=== PATIENT | male | born 1975 | race Caucasian/White ===

== ENCOUNTER 2022-02-13 19:34 | Emergency (ER) | payer BC, OTHER ==
[~2022-02-13] VITALS: Ht 175.3 cm; Wt 74.8 kg
[2022-02-13 20:32] LABS: BASOPHILS ABSOLUTE AUTO 0.08 K/mm3 (0.00-0.23); BASOPHILS PERCENT AUTO 1 % (0-2); EOSINOPHILS ABSOLUTE AUTO 0.62 K/mm3 (0.00-0.68); EOSINOPHILS PERCENT AUTO 8 % (0-6); Hemoglobin 8.1 g/dL (13.5-17.5); IMMATURE GRAN ABSOLUTE AUTO 0.11 K/mm3 (0.00-0.10); IMMATURE GRAN PERCENT AUTO 1 % (0-1); LYMPHOCYTES ABSOLUTE AUTO 2.35 K/mm3 (0.84-5.20); LYMPHOCYTES PERCENT AUTO 29 % (21-46); MONOCYTES ABSOLUTE AUTO 0.89 K/mm3 (0.16-1.47); MONOCYTES PERCENT AUTO 11 % (4-13); Mean Corpuscular HGB 29.8 pg (26.0-34.0); Mean Corpuscular HGB Conc 33.8 g/dL (31.5-36.5); Mean Corpuscular Volume 88 fL (80-100); Mean Platelet Volume 9.3 fL (9.1-12.4); NEUTROPHILS PERCENT AUTO 51 % (41-73); Platelet Count 246 K/mm3 (150-400); RDW Coefficient Variation 14.7 % (11.7-14.2); RDW Standard Deviation 47.4 fL (35.1-46.3); Red Blood Cell Count 2.72 M/mm3 (4.30-5.90); White Blood Cell Count 8.25 K/mm3 (4.00-11.30)
[2022-02-13 20:44] LABS: Albumin, Blood 3.7 g/dL (3.4-5.0); Albumin/Globulin Ratio 0.9 (0.8-1.8); Bilirubin, Total 0.4 mg/dL (0.1-1.0); Bun/Creatinine Ratio 2.9 (12.0-20.0); Creatinine, Blood 5.87 mg/dL (0.60-1.20); Globulin, Blood 4.1 g/dL (2.2-4.0); Potassium, Blood 5.1 mmol/L (3.5-5.5); Total Protein, Blood 7.8 g/dL (6.4-8.2)
== END 2022-02-13 20:59 | disposition home or self-care (01) ==
LOC: ER 19:34
PROVIDERS: Emergency Medicine
DX: T40.2X1A Poisoning by other opioids, accidental (unintentional), initial encounter (principal); C90.00 Multiple myeloma not having achieved remission; N18.6 End stage renal disease; G89.29 Other chronic pain; Z87.891 Personal history of nicotine dependence; Z99.2 Dependence on renal dialysis
CPT/HCPCS: 80053; 85025; 93005; 93010; 99284-25

== ENCOUNTER 2022-03-16 07:53 | Emergency (ER) | payer BC, OTHER ==
[~2022-03-16] VITALS: Ht 175.3 cm; Wt 72.6 kg
[2022-03-16] MEDS ORDERED: DECADRON4 M1 PO (08:28)
[2022-03-16] MEDS ORDERED: PANT40 PO (08:29)
[2022-03-16] MEDS ORDERED: PROC5 PO (08:29)
[2022-03-16] MEDS ORDERED: PARO10 PO (08:29)
[2022-03-16] MEDS ORDERED: MAGNESIUM OXID500 MG PO (08:30)
[2022-03-16] MEDS ORDERED: OXYC10TA19 PO (08:30)
[2022-03-16] MEDS ORDERED: OXYC10ER PO (08:30)
[2022-03-16] MEDS ORDERED: ACYC200 PO (08:31)
[2022-03-16] MEDS ORDERED: MORP15ER PO (11:14)
== END 2022-03-16 11:30 | disposition home or self-care (01) ==
LOC: ER 07:53
DX: C90.00 Multiple myeloma not having achieved remission (principal); R52 Pain, unspecified; M79.18 Myalgia, other site; N17.9 Acute kidney failure, unspecified; Z87.891 Personal history of nicotine dependence; Z79.899 Other long term (current) drug therapy; Z79.2 Long term (current) use of antibiotics; Z88.8 Allergy status to other drugs, medicaments and biological substances
CPT/HCPCS: J1170; J2405

== ENCOUNTER → 2022-04-25 | Outpatient (CLI) | payer BC, OTHER ==
[~2022-04-25] MED LIST: ACYC200 PO; DARZALEX; DECADRON4 M1 PO; MAGNESIUM OXID500 MG PO; MORP15ER PO; OXYC10ER PO; OXYC10TA19 PO; PANT40 PO; PARO10 PO; PROC5 PO
[2022-04-25 13:14] LABS: BASOPHILS ABSOLUTE AUTO 0.04 K/mm3 (0.00-0.23); BASOPHILS PERCENT AUTO 1 % (0-2); EOSINOPHILS ABSOLUTE AUTO 0.18 K/mm3 (0.00-0.68); EOSINOPHILS PERCENT AUTO 5 % (0-6); Hematocrit 24.2 % (37.0-53.0); Hemoglobin 8.1 g/dL (13.5-17.5); IMMATURE GRAN ABSOLUTE AUTO 0.03 K/mm3 (0.00-0.10); IMMATURE GRAN PERCENT AUTO 1 % (0-1); LYMPHOCYTES ABSOLUTE AUTO 0.38 K/mm3 (0.84-5.20); LYMPHOCYTES PERCENT AUTO 10 % (21-46); MONOCYTES ABSOLUTE AUTO 0.19 K/mm3 (0.16-1.47); MONOCYTES PERCENT AUTO 5 % (4-13); Mean Corpuscular HGB 30.8 pg (26.0-34.0); Mean Corpuscular HGB Conc 33.5 g/dL (31.5-36.5); Mean Corpuscular Volume 92 fL (80-100); Mean Platelet Volume 8.9 fL (9.1-12.4); NEUTROPHILS ABSOLUTE AUTO 3.03 K/mm3 (1.96-9.15); NEUTROPHILS PERCENT AUTO 79 % (41-73); Platelet Count 204 K/mm3 (150-400); RDW Coefficient Variation 15.3 % (11.7-14.2); RDW Standard Deviation 49.7 fL (35.1-46.3); Red Blood Cell Count 2.63 M/mm3 (4.30-5.90); White Blood Cell Count 3.85 K/mm3 (4.00-11.30)
[2022-04-25 14:27] LABS: Albumin, Blood 3.5 g/dL (3.4-5.0); Albumin/Globulin Ratio 1.1 (0.8-1.8); Bilirubin, Total 0.5 mg/dL (0.1-1.0); Bun/Creatinine Ratio 2.1 (12.0-20.0); Calcium, Blood 9.4 mg/dL (8.5-10.1); Creatinine, Blood 6.56 mg/dL (0.60-1.20); Globulin, Blood 3.1 g/dL (2.2-4.0); Potassium, Blood 4.5 mmol/L (3.5-5.5); Total Protein, Blood 6.6 g/dL (6.4-8.2)
[2022-04-28 10:07] LABS: BETA-2 MICROGLOBULIN, SERUM 23.4 mg/L (0.6-2.4)
[2022-04-29 15:08] LABS: A/G RATIO 1.7 (0.7-1.7); ALBUMIN 3.9 g/dL (2.9-4.4); ALPHA-1-GLOBULIN 0.2 g/dL (0.0-0.4); ALPHA-2-GLOBULIN 0.4 g/dL (0.4-1.0); BETA GLOBULIN 0.7 g/dL (0.7-1.3); GAMMA GLOBULIN 1.1 g/dL (0.4-1.8); GLOBULIN, TOTAL 2.4 g/dL (2.2-3.9); IMMUNOGLOBULIN A, QN, SERUM <5 mg/dL (90-386); IMMUNOGLOBULIN G, QN, SERUM 364 mg/dL (603-1613); IMMUNOGLOBULIN M, QN, SERUM 11 mg/dL (20-172); M-SPIKE Comment: g/dL (Not Observed); PROTEIN, TOTAL, SERUM 6.3 g/dL (6.0-8.5)
== END | disposition home or self-care (01) ==
LOC: LAB SHORT 11:20 → LAB 11:20
PROVIDERS: Internal Medicine Hematology & Oncology
DX: C90.00 Multiple myeloma not having achieved remission (principal)
CPT/HCPCS: 80053; 82232; 82784; 84165; 85025; 86334

== ENCOUNTER 2022-06-07 16:09 | Emergency (ER) | payer BC, OTHER ==
[~2022-06-07] VITALS: Ht 170.2 cm; Wt 56.7 kg
[2022-06-07 17:25] LABS: BASOPHILS ABSOLUTE AUTO 0.02 K/mm3 (0.00-0.23); BASOPHILS PERCENT AUTO 0 % (0-2); EOSINOPHILS ABSOLUTE AUTO 0.28 K/mm3 (0.00-0.68); EOSINOPHILS PERCENT AUTO 4 % (0-6); Hematocrit 23.8 % (37.0-53.0); Hemoglobin 8.4 g/dL (13.5-17.5); IMMATURE GRAN ABSOLUTE AUTO 0.05 K/mm3 (0.00-0.10); IMMATURE GRAN PERCENT AUTO 1 % (0-1); LYMPHOCYTES ABSOLUTE AUTO 0.18 K/mm3 (0.84-5.20); LYMPHOCYTES PERCENT AUTO 3 % (21-46); MONOCYTES ABSOLUTE AUTO 0.47 K/mm3 (0.16-1.47); MONOCYTES PERCENT AUTO 7 % (4-13); Mean Corpuscular HGB 33.5 pg (26.0-34.0); Mean Corpuscular HGB Conc 35.3 g/dL (31.5-36.5); Mean Corpuscular Volume 95 fL (80-100); NEUTROPHILS ABSOLUTE AUTO 5.45 K/mm3 (1.96-9.15); NEUTROPHILS PERCENT AUTO 85 % (41-73); Platelet Count 197 K/mm3 (150-400); RDW Coefficient Variation 15.7 % (11.7-14.2); RDW Standard Deviation 54.8 fL (35.1-46.3); Red Blood Cell Count 2.51 M/mm3 (4.30-5.90); White Blood Cell Count 6.45 K/mm3 (4.00-11.30)
[2022-06-07 17:58] LABS: Albumin, Blood 3.6 g/dL (3.4-5.0); Albumin/Globulin Ratio 0.9 (0.8-1.8); Bilirubin, Total 0.5 mg/dL (0.1-1.0); Bun/Creatinine Ratio 4.7 (12.0-20.0); Calcium, Blood 9.2 mg/dL (8.5-10.1); Creatinine, Blood 10.9 mg/dL (0.60-1.20); Globulin, Blood 3.8 g/dL (2.2-4.0); Potassium, Blood 4.1 mmol/L (3.5-5.5); Total Protein, Blood 7.4 g/dL (6.4-8.2)
[2022-06-07] MEDS ORDERED: Morphine Sulfat15 MG PO (22:19)
== END 2022-06-07 22:28 | disposition home or self-care (01) ==
LOC: ER 16:09
PROVIDERS: Physician Assistant
DX: S32.9XXA Fracture of unspecified parts of lumbosacral spine and pelvis, initial encounter for closed fracture (principal); Z87.891 Personal history of nicotine dependence; Z79.899 Other long term (current) drug therapy; Z91.048 Other nonmedicinal substance allergy status; W19.XXXA Unspecified fall, initial encounter
CPT/HCPCS: 36415; 72131; 80053; 85025; A9270; J1170

== ENCOUNTER 2022-06-09 14:55 | Observation (INO) | payer BC, OTHER ==
[~2022-06-09] VITALS: Ht 177.8 cm; Wt 68.0 kg
[~2022-06-09 14:55] MED LIST changes: +Morphine Sulfat15 MG PO
[2022-06-09 15:40] LABS: BASOPHILS ABSOLUTE AUTO 0.02 K/mm3 (0.00-0.23); BASOPHILS PERCENT AUTO 1 % (0-2); EOSINOPHILS ABSOLUTE AUTO 0.21 K/mm3 (0.00-0.68); EOSINOPHILS PERCENT AUTO 5 % (0-6); Hematocrit 21.8 % (37.0-53.0); Hemoglobin 7.6 g/dL (13.5-17.5); IMMATURE GRAN ABSOLUTE AUTO 0.03 K/mm3 (0.00-0.10); IMMATURE GRAN PERCENT AUTO 1 % (0-1); LYMPHOCYTES ABSOLUTE AUTO 0.34 K/mm3 (0.84-5.20); LYMPHOCYTES PERCENT AUTO 8 % (21-46); MONOCYTES ABSOLUTE AUTO 0.39 K/mm3 (0.16-1.47); MONOCYTES PERCENT AUTO 9 % (4-13); Mean Corpuscular HGB 33.5 pg (26.0-34.0); Mean Corpuscular HGB Conc 34.9 g/dL (31.5-36.5); Mean Corpuscular Volume 96 fL (80-100); Mean Platelet Volume 9.3 fL (9.1-12.4); NEUTROPHILS ABSOLUTE AUTO 3.21 K/mm3 (1.96-9.15); NEUTROPHILS PERCENT AUTO 76 % (41-73); Platelet Count 176 K/mm3 (150-400); RDW Coefficient Variation 15.5 % (11.7-14.2); Red Blood Cell Count 2.27 M/mm3 (4.30-5.90)
[2022-06-09 16:08] LABS: Magnesium, Blood 2.1 mg/dL (1.6-2.4)
[2022-06-09 16:17] LABS: Albumin, Blood 3.3 g/dL (3.4-5.0); Albumin/Globulin Ratio 0.9 (0.8-1.8); Bilirubin, Total 0.3 mg/dL (0.1-1.0); Bun/Creatinine Ratio 5.5 (12.0-20.0); Calcium, Blood 9.1 mg/dL (8.5-10.1); Creatinine, Blood 11.7 mg/dL (0.60-1.20); Globulin, Blood 3.8 g/dL (2.2-4.0); Potassium, Blood 4.2 mmol/L (3.5-5.5); Total Protein, Blood 7.1 g/dL (6.4-8.2)
[2022-06-10 07:55] LABS: Hematocrit 20.3 % (37.0-53.0); Hemoglobin 7.1 g/dL (13.5-17.5); Mean Corpuscular HGB 33.6 pg (26.0-34.0); Mean Corpuscular Volume 96 fL (80-100); Mean Platelet Volume 9.3 fL (9.1-12.4); Platelet Count 161 K/mm3 (150-400); RDW Coefficient Variation 15.6 % (11.7-14.2); RDW Standard Deviation 54.8 fL (35.1-46.3); Red Blood Cell Count 2.11 M/mm3 (4.30-5.90); White Blood Cell Count 3.76 K/mm3 (4.00-11.30)
[2022-06-10 08:10] LABS: Magnesium, Blood 2.2 mg/dL (1.6-2.4)
[2022-06-10 08:15] LABS: Bun/Creatinine Ratio 5.9 (12.0-20.0); Calcium, Blood 9.1 mg/dL (8.5-10.1)
--- NOTE | 2022-06-10 12:43 | NUR ---
06/10/22 1243 Noreen Fofana 2G ANCEF GIVEN BY ANESTHESIOLOGIST FROM [facility] AT 1206
[2022-06-10] MEDS ORDERED: Prozac20 MG PO (15:14)
[2022-06-10] MEDS ORDERED: Zofran8 MG PO (15:16)
== END 2022-06-10 10:33 | disposition home or self-care (01) ==
LOC: ER 14:55 → ERHOLD 14:56
PROVIDERS: Nurse Practitioner Acute Care; Physician Assistant; ADMIT Internal Medicine
DX: Z49.01 Encounter for fitting and adjustment of extracorporeal dialysis catheter (principal); N18.6 End stage renal disease; Z87.891 Personal history of nicotine dependence; K21.9 Gastro-esophageal reflux disease without esophagitis; N25.81 Secondary hyperparathyroidism of renal origin; E86.9 Volume depletion, unspecified; E87.1 Hypo-osmolality and hyponatremia; D63.1 Anemia in chronic kidney disease; C90.00 Multiple myeloma not having achieved remission
CPT/HCPCS: 36415; 71046; 77001; 80048; 80053; 83735; 85025; 85027; 96374; 96375; 96376; 99285-25; A9270; C1750; G0257; G0378; J0690; J0881; J1100; J1170; J1644; J2250; J2405; J2704; J2795; J3010; J7030

== ENCOUNTER 2022-11-12 11:09 | Day surgery (SDC) | payer BC, OTHER ==
[2022-11-12] VITALS (12 sets, daily range): BP systolic 100–146; BP diastolic 53–74
[~2022-11-12] VITALS: Ht 175.3 cm; Wt 74.1 kg
[~2022-11-12 11:09] MED LIST changes: +CYCLOPHOSPHAMID50 MG PO; +POMALYST2 MG PO; +Prozac20 MG PO; +Revlimid5 MG PO; +Zofran8 MG PO
[2022-11-12] MEDS ORDERED: OMEP20ER PO (11:54)
--- NOTE | 2022-11-12 15:03 | NUR ---
PT VERBALLY CONSENTED TO BLOOD DRAW ONCE AWAKE IN PACU. WITNESSED BY THIS STUDENT NURSE AND PRECEPTOR FALGUNI ALEMAN RN. NEEDLE STICK INJURY BY OR-STAFF. KETTLE CHIPPER DOWN TO DRAW BLOOD AT 1458. PT COOPERATIVE AND APPEARS TO HAVE TOLERATED THE PROCEDURE WELL.
--- NOTE | 2022-11-12 16:47 | NUR ---
DISCHARGE NOTE Discharge instructions reviewed with patient. Patient verbalizes understanding. Copy given to patient to take home.Lungs clear T/O to Auscultation.PT instructed not to disturb dressing, will be changed at dialysis appt tomorrow. Discharged via wheelchair to private car for ride home.
--- NOTE | 2022-11-12 17:00 | NUR ---
PT COMPLAINING OF NAUSEA WHILE BEING WHEELED OUT FOR DISCHARGE. BROUGHT PT BACK TO [facility], PT AMBULATED TO [facility] AND LAID DOWN. ORDER FOR HAIDER OLIVEIRA RECIEVED FROM DR. IVORY. TOOK VITAL SIGNS, BLOOD PRESSURE STABLE.
--- NOTE | 2022-11-12 17:04 | NUR ---
PHARMACY CALLED FOR CONFIRMATION OF ORDER. PT RESTING IN BED WITH EYES CLOSED. WET WASHCLOTH APPLIED TO FOREHEAD, ALCHOL SWAB UNDER NARES, NAUSEA SLIGHTLY IMPROVED. WAITING FOR PHARMACY TO TUBE ZOFRAN.
--- NOTE | 2022-11-12 17:20 | NUR ---
PT STATES THAT NAUSEA HAS IMPROVED. VITAL SIGNS STABLE. Discharged via wheelchair to private car for ride home.
--- NOTE | 2022-11-13 09:05 | NUR ---
11/13/22 0905 Jeannette Lima VERIFICATIONS: EDIT CHART.
[2022-11-13] MEDS ORDERED: Calcium Carbon500 MG PO (10:20)
[2022-11-13] MEDS ORDERED: Acetaminophen650 M1 PO (10:21)
[2022-11-13] MEDS ORDERED: DOCU100 PO (10:22)
== END 2022-11-12 17:25 | disposition home or self-care (01) ==
LOC: ORSCMMR 11:09 → ORD 15:00 → ORSCMMR 15:00
PROVIDERS: Surgery
PROC: B544ZZA Ultrasonography of Left Jugular Veins, Guidance (ICD-10-PCS; principal; 2022-11-12 12:00)
PROC: 05HN33Z Insertion of Infusion Device into Left Internal Jugular Vein, Percutaneous Approach (ICD-10-PCS; principal; 2022-11-12 12:00)
DX: C90.00 Multiple myeloma not having achieved remission (principal); N18.6 End stage renal disease; K21.9 Gastro-esophageal reflux disease without esophagitis; Z87.891 Personal history of nicotine dependence; Z79.899 Other long term (current) drug therapy
CPT/HCPCS: 77001; 93005; 93010; A9270; C1750; C1894; J0690; J1100; J1644; J2001; J2250; J2370; J2405; J2704; J2795; J3010; J7030

== ENCOUNTER 2022-11-12 20:33 | Inpatient (IN) | payer BC, OTHER ==
[~2022-11-12] VITALS: Ht 175.3 cm; Wt 72.6 kg
[~2022-11-12 20:33] MED LIST changes: +OMEP20ER PO
[2022-11-12 21:35] LABS: Calcium, Ionized (POC) 0.79 mmol/L (1.10-1.46); Chloride (POC) 104 mmol/L (98-108); Creatinine (POC) 11.1 mg/dL (0.8-1.3); Glucose (ISTAT POC) 209 mg/dL (70-99); Hemoglobin (POC) 7.5 g/dL (13.5-17.5); Potassium (POC) 6.3 mmol/L (3.5-5.5); Sodium (POC) 133 mmol/L (135-148); Total CO2 (POC) 18 mmol/L (21-32)
[2022-11-12 21:36] LABS: BASOPHILS ABSOLUTE AUTO 0.02 K/mm3 (0.00-0.23); BASOPHILS PERCENT AUTO 1 % (0-2); EOSINOPHILS ABSOLUTE AUTO 0.02 K/mm3 (0.00-0.68); EOSINOPHILS PERCENT AUTO 1 % (0-6); Hematocrit 20.7 % (37.0-53.0); Hemoglobin 6.7 g/dL (13.5-17.5); IMMATURE GRAN ABSOLUTE AUTO 0.02 K/mm3 (0.00-0.10); IMMATURE GRAN PERCENT AUTO 1 % (0-1); LYMPHOCYTES ABSOLUTE AUTO 0.17 K/mm3 (0.84-5.20); LYMPHOCYTES PERCENT AUTO 6 % (21-46); MONOCYTES ABSOLUTE AUTO 0.08 K/mm3 (0.16-1.47); MONOCYTES PERCENT AUTO 3 % (4-13); Mean Corpuscular HGB 31.3 pg (26.0-34.0); Mean Corpuscular HGB Conc 32.4 g/dL (31.5-36.5); Mean Corpuscular Volume 97 fL (80-100); Mean Platelet Volume 9.4 fL (9.1-12.4); NEUTROPHILS ABSOLUTE AUTO 2.76 K/mm3 (1.96-9.15); NEUTROPHILS PERCENT AUTO 90 % (41-73); Platelet Count 83 K/mm3 (150-400); RDW Coefficient Variation 14.5 % (11.7-14.2); RDW Standard Deviation 50.6 fL (35.1-46.3); Red Blood Cell Count 2.14 M/mm3 (4.30-5.90); White Blood Cell Count 3.07 K/mm3 (4.00-11.30)
[2022-11-12 22:06] LABS: Magnesium, Blood 2.6 mg/dL (1.6-2.4); Phosphorus, Blood 4.7 mg/dL (2.5-4.9)
[2022-11-12 22:13] LABS: International Normalized Ratio 1.02; Prothrombin Time Results 10.7 Sec (9.7-11.5)
[2022-11-12 22:19] LABS: Albumin, Blood 3.3 g/dL (3.4-5.0); Albumin/Globulin Ratio 1.1 (0.8-1.8); Bilirubin, Total 0.3 mg/dL (0.1-1.0); Bun/Creatinine Ratio 5.7 (12.0-20.0); Calcium, Blood 6.2 mg/dL (8.5-10.1); Creatinine, Blood 10.3 mg/dL (0.60-1.20); Total Protein, Blood 6.3 g/dL (6.4-8.2)
[2022-11-12 22:22] LABS: Potassium, Blood 6.5 mmol/L (3.5-5.5)
[2022-11-13] VITALS (17 sets, daily range): BP systolic 109–144; BP diastolic 66–81
--- NOTE | 2022-11-13 06:42 | NUR ---
SHIFT SUMMARY PATIENT ARRIVED TO PCU 3 VIA STRETCHER, SLIDE TRANSFER DUE TO WEAKNES. PATIENT ALERT AND ORIENTED X4, FLAT AFFECT AND WITHDRAWN. LUNG SOUNDS CLEAR, VITAL SIGNS STABLE, SINUS RHYTHM ON TELE. PATIENT WAS EXPERIENCING 9/10 PAIN AT THE SITE OF HIS NEW HD PORT, 2-4 MG IV MORPHINE EVERY FOUR HOURS NEEDED ORDERED BY DR CUELLO. PATIENT TRANSFUSED WITH 1 UNIT OF PRBC'S. PATIENT'S POTASSIUM CHECKED STAT BY REQUEST OF DR HERNANDEZ, RESULT CAME BACK AT 7.[address] HERNANDEZ OF RESULT. DR HERNANDEZ ORDERED 1 G IV CALCIUM GLUCONATE, 1 AMP IV SODIUM BICARB, 10G PO LOKELMA, AND STAT DIALYSIS. AFTER BEING NOTIFIED WITH PATIENT'S BLOOD SUGAR DR HERNANDEZ ORDERED 1 AMP IV D50, 10 UNITS IV REGULAR INSULIN, AND D5 NS @ 50 ML/HR. ALL MEDICATIONS GIVEN PER ORDERED. PATIENT IS WEAK AND TIRED THIS MORNING. BLOOD SUGAR STABLE AFTER D50 AND INSULIN. DIALYSIS AT BEDSIDE. WILL CONTINUE TO MONITOR. CALL LIGHT WITHIN REACH.
[2022-11-13 07:12] LABS: Glucose, Blood 80 mg/dL (70-99); Potassium, Blood 7.5 mmol/L (3.5-5.5)
[2022-11-13 09:23] LABS: BASOPHILS ABSOLUTE AUTO 0.01 K/mm3 (0.00-0.23); BASOPHILS PERCENT AUTO 0 % (0-2); EOSINOPHILS ABSOLUTE AUTO 0.01 K/mm3 (0.00-0.68); EOSINOPHILS PERCENT AUTO 0 % (0-6); Hematocrit 20.3 % (37.0-53.0); IMMATURE GRAN ABSOLUTE AUTO 0.02 K/mm3 (0.00-0.10); IMMATURE GRAN PERCENT AUTO 1 % (0-1); LYMPHOCYTES ABSOLUTE AUTO 0.33 K/mm3 (0.84-5.20); LYMPHOCYTES PERCENT AUTO 11 % (21-46); MONOCYTES ABSOLUTE AUTO 0.46 K/mm3 (0.16-1.47); MONOCYTES PERCENT AUTO 15 % (4-13); Mean Corpuscular HGB 31.3 pg (26.0-34.0); Mean Corpuscular HGB Conc 34.5 g/dL (31.5-36.5); Mean Platelet Volume 9.3 fL (9.1-12.4); NEUTROPHILS PERCENT AUTO 74 % (41-73); Platelet Count 81 K/mm3 (150-400); RDW Coefficient Variation 14.8 % (11.7-14.2); RDW Standard Deviation 48.4 fL (35.1-46.3); Red Blood Cell Count 2.24 M/mm3 (4.30-5.90); White Blood Cell Count 3.13 K/mm3 (4.00-11.30)
[2022-11-13 09:43] LABS: Mean Corpuscular Volume 91 fL (80-100)
[2022-11-13] MEDS ORDERED: Calcium Carbon500 MG PO (10:20)
[2022-11-13] MEDS ORDERED: Acetaminophen650 M1 PO (10:21)
[2022-11-13] MEDS ORDERED: DOCU100 PO (10:22)
[2022-11-13 11:01] LABS: Alanine Aminotransfer (ALT/SGP 7 U/L (12-78); Albumin, Blood 3.2 g/dL (3.4-5.0); Albumin/Globulin Ratio 1.2 (0.8-1.8); Alk Phos 51 U/L (50-136); Anion Gap 11 mmol/L (6-16); Aspartate Aminotrans (AST/SGOT <3 U/L (12-37); Bilirubin, Total 0.5 mg/dL (0.1-1.0); Blood Urea Nitrogen 37 mg/dL (8-24); Bun/Creatinine Ratio 5.9 (12.0-20.0); CO2, Blood 25 mmol/L (21-32); Calcium, Blood 7.1 mg/dL (8.5-10.1); Chloride, Blood 99 mmol/L (98-108); Creatinine, Blood 6.32 mg/dL (0.60-1.20); Globulin, Blood 2.6 g/dL (2.2-4.0); Glomerular Filtration Rate 10 (60-); Glucose, Blood 99 mg/dL (70-99); Potassium, Blood 4.2 mmol/L (3.5-5.5); Sodium, Blood 135 mmol/L (136-145); Total Protein, Blood 5.8 g/dL (6.4-8.2)
--- NOTE | 2022-11-13 18:01 | NUR ---
NURSING PCU DAYSHIFT SUMMARY: No significant changes since a.m. assessment. HD completed, approx 1L removed. Pt cont to have pain r/t recent placement of HD cath, tx w/meds as ordered. General unwell and weakness experienced t/o shift though reports slight improvement compared to admit. Post HD labs completed and reviewed w/director of residence life and PMD, new d/o recieved. Noted to not have voided t/o shift, bladder scan completed with >999 present. Able to void 600mls followed by 425mls since scan completed, denies abd pressure or discomfort since void. Mom at bedside this afternoon, update provided, plan of care discussed. Pt and family deny any current needs or questions regarding plan of care. Call light in reach, cont to monitor until rpt is given to NOC RN.
[2022-11-14] VITALS (21 sets, daily range): BP systolic 112–160; BP diastolic 56–86
[2022-11-14 04:18] LABS: Hematocrit 19.7 % (37.0-53.0); Hemoglobin 6.6 g/dL (13.5-17.5)
[2022-11-14 05:02] LABS: Ferritin, Serum 692 ng/mL (26-388); Iron Serum 40 ug/dL (65-175); Magnesium, Blood 2.2 mg/dL (1.6-2.4); Percent Saturation 19.8 % (20.0-50.0); Total Iron Binding Capacity 202 ug/dL (250-450)
[2022-11-14 05:46] LABS: Albumin, Blood 3.1 g/dL (3.4-5.0); Anion Gap 8 mmol/L (6-16); Blood Urea Nitrogen 45 mg/dL (8-24); Bun/Creatinine Ratio 5.4 (12.0-20.0); CO2, Blood 27 mmol/L (21-32); Calcium, Blood 6.3 mg/dL (8.5-10.1); Chloride, Blood 102 mmol/L (98-108); Creatinine, Blood 8.37 mg/dL (0.60-1.20); Glomerular Filtration Rate 7 (60-); Glucose, Blood 101 mg/dL (70-99); Phosphorus, Blood 4.9 mg/dL (2.5-4.9); Potassium, Blood 5.4 mmol/L (3.5-5.5); Sodium, Blood 137 mmol/L (136-145)
--- NOTE | 2022-11-14 06:48 | NUR ---
SHIFT SUMMARY PATIENT ALERT AND ORIENTED X4. MEDICATED PER EMAR FOR PAIN, REPORTS THAT PAIN IS SLOWLY DECREASING. WAS ABLE TO REST OVERNIGHT. LUNG SOUNDS CLEAR, ON ROOM AIR. VITAL SIGNS STABLE, SINUS RHYTHM ON TELE. PATIENT'S CREATININE 8.37 AND HEMEGLOBIN 6.6 THIS MORNING, REPORTED THESE RESULTS TO DR HERNANDEZ, PATIENT TO RECEIVE 1 UNIT PRBC'S DURING DIALYSIS TODAY. WILL CONTINUE TO MONITOR. CALL LIGHT WITHIN REACH.
--- NOTE | 2022-11-14 16:51 | NUR ---
SHIFT SUMMARY PT IS A&O X4. VSS. SPO2 >92% ON RA. NORMAL SINUS RHYTHM HR 60'S-70'S. PT C/O FREQUENT DISCOMFORT ON THE LEFT SHOULDER AND PLACEMENT OF WHERE DIALYSIS CATH IS. PT MEDICATED FOR PAIN PER ORDERS. PT RECIEVED DIALYSIS TX TODAY. PT C/O FEELING "WEIRD" AFTER DIALYSIS. PT MEDICATED FOR PAIN. PT NOW ABLE TO SLEEP. PT NOW STATING HE IS FEELING BETTER. NO OTHER COMPLAINTS AT THIS TIME. BED IS IN LOWEST POSITION AND CALL LIGHT IN REACH. WILL CONTINUE TO MONITOR.
--- NOTE | 2022-11-14 20:16 | NUR ---
ASSUMPTION OF CARE THIS RN ASSUMED CARE OF PATIENT AT 1900. REPORT TAKEN FROM MAX RN AND REKHA CHRISTY RN. PATIENT IS ALERT AND ORIENTED FULLY. ABLE TO MAKE NEEDS KNOWN. MEDICATED PER EMAR FOR REPORTED PAIN AT HD CATH SITE IN LEFT UPPER CHEST. BP STABLE. AFEBRILE. SPO2 >92% ON RA. SR ON MONITOR WITH HR 70'S. REPORTS GENERALIZED WEAKNESS. BED IN LOWEST POSITION AND CALL LIGHT WITHIN REACH.
[2022-11-15] VITALS (15 sets, daily range): BP systolic 108–146; BP diastolic 54–77
[2022-11-15 04:19] LABS: Hematocrit 22.4 % (37.0-53.0); Hemoglobin 7.6 g/dL (13.5-17.5)
--- NOTE | 2022-11-15 04:30 | NUR ---
SHIFT SUMMARY NO ACUTE CHANGES OVERNIGHT. ALERT AND ORIENTED FULLY AND ABLE TO MAKE NEEDS KNOWN. COOPERATIVE WITH CARE. FLAT AFFECT. BP STABLE. SR ON MONITOR WITH HR 60-70'S. SPO2 >92% ON RA. AFEBRILE. HD CATH IN LEFT CHEST WALL WNL, DRESSING C/D/I. PATIENT DENIES PAIN AT THIS TIME; MEDICATING PER EMAR. PATIENT REPOSITIONING SELF IN BED INDEPENDENTLY. BED IN LOWEST POSITION AND CALL LIGHT WITHIN REACH. THIS RN WILL CONTINUE TO MONITOR UNTIL SHIFT CHANGE AT 0700.
[2022-11-15 04:33] LABS: Anion Gap 9 mmol/L (6-16); Blood Urea Nitrogen 33 mg/dL (8-24); Bun/Creatinine Ratio 4.9 (12.0-20.0); CO2, Blood 30 mmol/L (21-32); Calcium, Blood 6.7 mg/dL (8.5-10.1); Chloride, Blood 99 mmol/L (98-108); Creatinine, Blood 6.78 mg/dL (0.60-1.20); Glomerular Filtration Rate 9 (60-); Glucose, Blood 106 mg/dL (70-99); Magnesium, Blood 2.1 mg/dL (1.6-2.4); Phosphorus, Blood 5.2 mg/dL (2.5-4.9); Sodium, Blood 138 mmol/L (136-145)
[2022-11-15] MEDS ORDERED: LOKELMA10 GM PO (13:49)
[2022-11-15] MEDS ORDERED: VISBIOME 112.51 EACH PO (13:51)
[2022-11-15] MEDS ORDERED: AZIT250 PO (13:52)
[2022-11-15] MEDS ORDERED: CEPH500 PO (13:54)
--- NOTE | 2022-11-15 14:17 | NUR ---
DISCHARGE NOTE PT IS A&O X4. VSS. SPO2 >92% ON RA. NORMAL SINUS RHYTHM HR 60'S. PT RECIEVED DIALYSIS TX TODAY. CXR DONE THIS SHIFT. WITH ORDER FOR DC HOME. DC INSTRUCTIONS REVIEWED WITH PT. IV'S REMOVED. PT TO BE TAKEN OUT IN WHEELCHAIR WITH BELONGINGS.
== END 2022-11-15 14:30 | disposition home or self-care (01) | DRG 640 ==
LOC: ER 20:33 → PCU 20:34
PROVIDERS: Internal Medicine Nephrology; Student in an Organized Health Care Education/Training Program; ADMIT Internal Medicine
PROC: 30233N1 Transfusion of Nonautologous Red Blood Cells into Peripheral Vein, Percutaneous Approach (ICD-10-PCS; principal; 2022-11-13)
PROC: 5A1D70Z Performance of Urinary Filtration, Intermittent, Less than 6 Hours Per Day (ICD-10-PCS; 2022-11-14)
DX: E87.5 Hyperkalemia (principal); N18.6 End stage renal disease; C79.89 Secondary malignant neoplasm of other specified sites; C90.00 Multiple myeloma not having achieved remission; N25.81 Secondary hyperparathyroidism of renal origin; D61.818 Other pancytopenia; J94.2 Hemothorax; J90 Pleural effusion, not elsewhere classified; E87.20 Acidosis, unspecified; E87.1 Hypo-osmolality and hyponatremia; M54.9 Dorsalgia, unspecified; E83.51 Hypocalcemia; D63.1 Anemia in chronic kidney disease; E86.9 Volume depletion, unspecified; K21.9 Gastro-esophageal reflux disease without esophagitis; D63.0 Anemia in neoplastic disease; G89.29 Other chronic pain; E87.6 Hypokalemia; R73.9 Hyperglycemia, unspecified; Z87.891 Personal history of nicotine dependence; Z98.890 Other specified postprocedural states; Z99.2 Dependence on renal dialysis; Z85.118 Personal history of other malignant neoplasm of bronchus and lung; Z79.899 Other long term (current) drug therapy; Z79.891 Long term (current) use of opiate analgesic; Z88.5 Allergy status to narcotic agent; Z79.2 Long term (current) use of antibiotics
CPT/HCPCS: 36415; 36430; 71045; 80047; 80053; 80069; 82607; 82728; 82746; 82947; 83036; 83540; 83550; 83735; 84100; 84132; 84145; 85014; 85018; 85025; 85610; 85730; 86850; 86900; 86901; 86902; 86920; 93005; 93010; 96374; 96375; 99285-25; A9270; G0378; J0456; J0612; J0696; J0881; J1815; J2270; J2405; J7042; J7050; J7799; P9016

== ENCOUNTER → 2023-05-08 | Outpatient (CLI) | payer OTHER ==
[~2023-05-08] MED LIST changes: +AZIT250 PO; +Acetaminophen650 M1 PO; +CEPH500 PO; +Calcium Carbon500 MG PO; +DOCU100 PO; +LOKELMA10 GM PO; +VISBIOME 112.51 EACH PO
[2023-05-08 13:55] LABS: BASOPHILS PERCENT AUTO 3 % (0-2); EOSINOPHILS ABSOLUTE AUTO 0.23 K/mm3 (0.00-0.68); EOSINOPHILS PERCENT AUTO 7 % (0-6); Hemoglobin 9.7 g/dL (13.5-17.5); IMMATURE GRAN ABSOLUTE AUTO 0.07 K/mm3 (0.00-0.10); IMMATURE GRAN PERCENT AUTO 2 % (0-1); LYMPHOCYTES PERCENT AUTO 16 % (21-46); MONOCYTES ABSOLUTE AUTO 0.23 K/mm3 (0.16-1.47); MONOCYTES PERCENT AUTO 7 % (4-13); Mean Corpuscular HGB 31.3 pg (26.0-34.0); Mean Corpuscular HGB Conc 32.3 g/dL (31.5-36.5); Mean Corpuscular Volume 97 fL (80-100); Mean Platelet Volume 9.7 fL (9.1-12.4); NEUTROPHILS ABSOLUTE AUTO 2.09 K/mm3 (1.96-9.15); NEUTROPHILS PERCENT AUTO 65 % (41-73); Platelet Count 186 K/mm3 (150-400); RDW Coefficient Variation 15.5 % (11.7-14.2); RDW Standard Deviation 54.4 fL (35.1-46.3); White Blood Cell Count 3.22 K/mm3 (4.00-11.30)
[2023-05-08 14:02] LABS: Albumin, Blood 3.5 g/dL (3.4-5.0); Albumin/Globulin Ratio 1.2 (0.8-1.8); Bilirubin, Total 0.5 mg/dL (0.1-1.0); Bun/Creatinine Ratio 3.1 (12.0-20.0); Calcium, Blood 8.5 mg/dL (8.5-10.1); Creatinine, Blood 6.83 mg/dL (0.60-1.20); Globulin, Blood 2.8 g/dL (2.2-4.0); Potassium, Blood 4.6 mmol/L (3.5-5.5); Total Protein, Blood 6.3 g/dL (6.4-8.2)
== END ==
LOC: LAB 13:27 → LAB SHORT 13:27
PROVIDERS: Internal Medicine Hematology & Oncology
DX: C90.00 Multiple myeloma not having achieved remission (principal)
CPT/HCPCS: 80053; 83521; 85025

== ENCOUNTER → 2023-08-28 | Outpatient (CLI) | payer BC, OTHER ==
[2023-08-28 13:50] LABS: BASOPHILS ABSOLUTE AUTO 0.16 K/mm3 (0.00-0.23); BASOPHILS PERCENT AUTO 5 % (0-2); EOSINOPHILS PERCENT AUTO 17 % (0-6); Hematocrit 26.1 % (37.0-53.0); Hemoglobin 8.6 g/dL (13.5-17.5); IMMATURE GRAN ABSOLUTE AUTO 0.02 K/mm3 (0.00-0.10); IMMATURE GRAN PERCENT AUTO 1 % (0-1); LYMPHOCYTES ABSOLUTE AUTO 0.53 K/mm3 (0.84-5.20); LYMPHOCYTES PERCENT AUTO 18 % (21-46); MONOCYTES ABSOLUTE AUTO 0.32 K/mm3 (0.16-1.47); MONOCYTES PERCENT AUTO 11 % (4-13); Mean Corpuscular HGB 32.2 pg (26.0-34.0); Mean Corpuscular Volume 98 fL (80-100); Mean Platelet Volume 8.8 fL (9.1-12.4); NEUTROPHILS ABSOLUTE AUTO 1.49 K/mm3 (1.96-9.15); NEUTROPHILS PERCENT AUTO 49 % (41-73); Platelet Count 179 K/mm3 (150-400); RDW Coefficient Variation 14.4 % (11.7-14.2); RDW Standard Deviation 51.1 fL (35.1-46.3); Red Blood Cell Count 2.67 M/mm3 (4.30-5.90); White Blood Cell Count 3.02 K/mm3 (4.00-11.30)
[2023-08-28 14:04] LABS: Albumin, Blood 2.9 g/dL (3.4-5.0); Albumin/Globulin Ratio 0.8 (0.8-1.8); Bilirubin, Total 0.3 mg/dL (0.1-1.0); Bun/Creatinine Ratio 3.6 (12.0-20.0); Calcium, Blood 8.2 mg/dL (8.5-10.1); Creatinine, Blood 5.82 mg/dL (0.60-1.20); Globulin, Blood 3.8 g/dL (2.2-4.0); Potassium, Blood 3.5 mmol/L (3.5-5.5); Total Protein, Blood 6.7 g/dL (6.4-8.2)
== END ==
LOC: LAB SHORT 12:20
PROVIDERS: Internal Medicine Hematology & Oncology
DX: C90.00 Multiple myeloma not having achieved remission (principal)
CPT/HCPCS: 80053; 85025

== ENCOUNTER 2024-05-13 16:52 | Emergency (ER) | payer MEDICARE, OTHER ==
[~2024-05-13] VITALS: Ht 175.3 cm; Wt 74.8 kg
[~2024-05-13 16:52] MED LIST changes: +ALUMINUM H320 MG/5 M PO; +Calcium Acetat667 MG PO; +DECADRON4 M1; +LACT10SY PO; +NARCAN4 M1 NS; +ONDA4 PO; -POMALYST2 MG PO; +POMALYST3 MG PO
[2024-05-13 19:18] LABS: Albumin, Blood 3.7 g/dL (3.4-5.0); Albumin/Globulin Ratio 1.3 (0.8-1.8); Bilirubin, Total 0.6 mg/dL (0.1-1.0); Bun/Creatinine Ratio 1.9 (12.0-20.0); Creatinine, Blood 4.27 mg/dL (0.60-1.20); Globulin, Blood 2.8 g/dL (2.2-4.0); Potassium, Blood 3.7 mmol/L (3.5-5.5); Total Protein, Blood 6.5 g/dL (6.4-8.2)
[2024-05-13 20:26] LABS: Hematocrit 29.5 % (37.0-53.0); Hemoglobin 9.7 g/dL (13.5-17.5); Mean Corpuscular HGB 33.2 pg (26.0-34.0); Mean Corpuscular HGB Conc 32.9 g/dL (31.5-36.5); Mean Corpuscular Volume 101 fL (80-100); Mean Platelet Volume 9.3 fL (9.1-12.4); NRBC ABSOLUTE 0.03 K/mm3 (0.00-0.02); NRBC Auto 0.8 /100 WBC (0.0-0.2); Platelet Count 121 K/mm3 (150-400); RDW Coefficient Variation 14.6 % (11.7-14.2); RDW Standard Deviation 54.7 fL (35.1-46.3); Red Blood Cell Count 2.92 M/mm3 (4.30-5.90); White Blood Cell Count 3.64 K/mm3 (4.00-11.30)
[2024-05-13 20:47] LABS: BAND PERCENT MAN 2 % (0-8); BASOPHILS PERCENT MAN 0 % (0-2); EOSINOPHILS ABSOLUTE MAN 0.32 K/mm3 (0.00-0.68); EOSINOPHILS PERCENT MAN 9 % (0-6); LYMPHOCYTES ABSOLUTE MAN 0.91 K/mm3 (0.84-5.20); LYMPHOCYTES PERCENT MAN 25 % (21-46); MONOCYTES ABSOLUTE MAN 0.32 K/mm3 (0.16-1.47); MONOCYTES PERCENT MAN 9 % (4-13); MYELOCYTE ABSOLUTE MAN 0.03 K/mm3 (0.00-0.00); MYELOCYTE PERCENT MAN 1 % (0-0); NEUTROPHILS ABSOLUTE MAN 2.03 K/mm3 (1.96-9.15); SEG NEUTROPHILS PERCENT MAN 54 % (41-73); TOTAL CELLS COUNTED 100
[2024-05-14] MEDS ORDERED: SALICYLIC ACID TOP ONE (01:45)
[2024-05-14 02:00] VITALS: BP 101/72
[2024-05-14] MEDS ORDERED: Diclofenac Sodium 100 GM TUBE TOP ONE (02:35)
== END 2024-05-14 02:30 | disposition home or self-care (01) ==
LOC: ER 16:52
PROVIDERS: Physician Assistant
DX: I82.611 Acute embolism and thrombosis of superficial veins of right upper extremity (principal); D61.818 Other pancytopenia; N18.6 End stage renal disease; Z99.2 Dependence on renal dialysis; Z87.891 Personal history of nicotine dependence; Z79.899 Other long term (current) drug therapy; Z88.1 Allergy status to other antibiotic agents; Z88.5 Allergy status to narcotic agent; T82.590A Other mechanical complication of surgically created arteriovenous fistula, initial encounter; C90.00 Multiple myeloma not having achieved remission
CPT/HCPCS: 36415; 71046; 71260; 80048; 80053; 82784; 83521; 84155; 84165; 85007; 85025; 85027; 85610; 86334; 93005; 93010; 93971; 99285-25; A9270; Q9967

== ENCOUNTER 2024-05-17 10:15 | Day surgery (SDC) | payer MEDICARE, OTHER ==
[~2024-05-17] VITALS: Ht 175.3 cm; Wt 77.0 kg
[2024-05-17 11:01] VITALS: BP 99/64
[2024-05-17] MEDS ORDERED: NS 250 ML IV ONE (12:31)
[2024-05-17] MEDS ORDERED: Heparin Sodium 1000 Units/ML 10ML MDV ONE (12:31)
[2024-05-17] MEDS ORDERED: NS 500 ML IV ONE (12:32)
[2024-05-17] MEDS ORDERED: FentaNYL Citrate 50 MCG/ML 2 ML Injection ONE (12:35)
[2024-05-17] MEDS ORDERED: HYDROmorphone HCl/Pf 1MG SYR IV ONE (13:15)
[2024-05-17] MEDS ORDERED: HYDROMORPHONE HCL IV ONE (13:15)
[2024-05-17 14:08] VITALS: BP 94/72
--- NOTE | 2024-05-17 14:13 | NUR ---
VERBAL DISCHARGE INSTRUCTIONS GIVEN TO PATIENT AND FAMILY. FISTULA SITE C/D/I SOFT/NONTENDER, THRILL AND BRUIT PRESENT. VSS ON RA. PATIENT CONVERSING APPROPRIATELY.
--- NOTE | 2024-05-17 14:15 | NUR ---
PATIENT WHEELED TO HOSPITAL ENTRANCE AND FAMILY MEMBER ABLE TO PROVIDE TRANSPORTATION HOME.
== END 2024-05-17 14:15 | disposition home or self-care (01) ==
LOC: MHTC 10:15 → ORSCMMR 10:16 → MHTC 10:25
DX: T82.590A Other mechanical complication of surgically created arteriovenous fistula, initial encounter (principal); N18.6 End stage renal disease; Z88.1 Allergy status to other antibiotic agents; Z88.5 Allergy status to narcotic agent; Z99.2 Dependence on renal dialysis; Z87.891 Personal history of nicotine dependence
CPT/HCPCS: 36902; 76937; C1725; C1769; C1887; C1894; J1171; J1644; J3010; J7040; J7050; Q9967

== ENCOUNTER → 2024-06-04 | Outpatient (CLI) | payer MEDICARE, OTHER ==
[2024-06-04 10:04] LABS: BASOPHILS ABSOLUTE AUTO 0.05 K/mm3 (0.00-0.23); BASOPHILS PERCENT AUTO 1 % (0-2); EOSINOPHILS ABSOLUTE AUTO 0.02 K/mm3 (0.00-0.68); EOSINOPHILS PERCENT AUTO 1 % (0-6); Hematocrit 27.2 % (37.0-53.0); Hemoglobin 9.2 g/dL (13.5-17.5); IMMATURE GRAN ABSOLUTE AUTO 0.07 K/mm3 (0.00-0.10); IMMATURE GRAN PERCENT AUTO 2 % (0-1); LYMPHOCYTES ABSOLUTE AUTO 0.74 K/mm3 (0.84-5.20); LYMPHOCYTES PERCENT AUTO 18 % (21-46); MONOCYTES ABSOLUTE AUTO 0.42 K/mm3 (0.16-1.47); MONOCYTES PERCENT AUTO 10 % (4-13); Mean Corpuscular HGB Conc 33.8 g/dL (31.5-36.5); Mean Corpuscular Volume 98 fL (80-100); Mean Platelet Volume 10.6 fL (9.1-12.4); NEUTROPHILS ABSOLUTE AUTO 2.77 K/mm3 (1.96-9.15); NEUTROPHILS PERCENT AUTO 68 % (41-73); Platelet Count 89 K/mm3 (150-400); RDW Coefficient Variation 14.1 % (11.7-14.2); RDW Standard Deviation 49.9 fL (35.1-46.3); Red Blood Cell Count 2.79 M/mm3 (4.30-5.90); White Blood Cell Count 4.07 K/mm3 (4.00-11.30)
[2024-06-04 10:29] LABS: Albumin, Blood 3.6 g/dL (3.4-5.0); Albumin/Globulin Ratio 1.1 (0.8-1.8); Bilirubin, Total 0.5 mg/dL (0.1-1.0); Calcium, Blood 8.8 mg/dL (8.5-10.1); Creatinine, Blood 6.93 mg/dL (0.60-1.20); Globulin, Blood 3.2 g/dL (2.2-4.0); Potassium, Blood 3.8 mmol/L (3.5-5.5); Total Protein, Blood 6.8 g/dL (6.4-8.2)
[2024-06-07 07:56] LABS: KAPPA QNT FREE LIGHT CHAINS 249.99 mg/L (3.30-19.40); KAPPA/LAMBDA FREE LIGHT CH RAT 8.75 (0.26-1.65); LAMBDA QNT FREE LIGHT CHAINS 28.58 mg/L (5.71-26.30)
== END | disposition home or self-care (01) ==
LOC: LAB 09:55 → LAB SHORT 09:55
PROVIDERS: Internal Medicine Hematology & Oncology
DX: C90.00 Multiple myeloma not having achieved remission (principal)
CPT/HCPCS: 80053; 83521; 85025

== ENCOUNTER → 2024-07-02 | Outpatient (CLI) | payer MEDICARE, OTHER ==
[~2024-07-02] MED LIST changes: +MIDO5 PO
[2024-07-02 09:55] LABS: Hematocrit 24.2 % (37.0-53.0); Hemoglobin 8.2 g/dL (13.5-17.5); Mean Corpuscular HGB 33.3 pg (26.0-34.0); Mean Corpuscular HGB Conc 33.9 g/dL (31.5-36.5); Mean Corpuscular Volume 98 fL (80-100); Mean Platelet Volume 9.5 fL (9.1-12.4); Platelet Count 109 K/mm3 (150-400); RDW Coefficient Variation 15.2 % (11.7-14.2); RDW Standard Deviation 54.6 fL (35.1-46.3); Red Blood Cell Count 2.46 M/mm3 (4.30-5.90); White Blood Cell Count 2.25 K/mm3 (4.00-11.30)
[2024-07-02 10:05] LABS: International Normalized Ratio 1.04; Prothrombin Time Results 11.1 Sec (9.7-11.5)
[2024-07-02 10:16] LABS: Calcium, Blood 8.7 mg/dL (8.5-10.1); Creatinine, Blood 7.27 mg/dL (0.60-1.20); Potassium, Blood 3.3 mmol/L (3.5-5.5)
[2024-07-02 10:31] LABS: BASOPHILS ABSOLUTE MAN 0.09 K/mm3 (0.00-0.23); BASOPHILS PERCENT MAN 4 % (0-2); EOSINOPHILS ABSOLUTE MAN 0.31 K/mm3 (0.00-0.68); EOSINOPHILS PERCENT MAN 14 % (0-6); LYMPHOCYTES PERCENT MAN 27 % (21-46); MONOCYTES ABSOLUTE MAN 0.09 K/mm3 (0.16-1.47); MONOCYTES PERCENT MAN 4 % (4-13); NEUTROPHILS ABSOLUTE MAN 1.14 K/mm3 (1.96-9.15); SEG NEUTROPHILS PERCENT MAN 51 % (41-73); TOTAL CELLS COUNTED 100
== END ==
LOC: LAB 09:39 → LAB SHORT 09:39
PROVIDERS: Student in an Organized Health Care Education/Training Program
DX: C90.00 Multiple myeloma not having achieved remission (principal); N18.6 End stage renal disease
CPT/HCPCS: 80048; 85007; 85027; 85610

== ENCOUNTER 2024-07-05 06:43 | Day surgery (SDC) | payer MEDICARE, OTHER ==
[~2024-07-05] VITALS: Ht 175.3 cm; Wt 75.0 kg
[~2024-07-05 06:43] MED LIST changes: -MIDO5 PO
[2024-07-05] MEDS ORDERED: MIDO5 PO (07:14)
[2024-07-05 07:16] VITALS: BP 109/70
[2024-07-05] MEDS ORDERED: Heparin Sodium 1000 Units/ML 10ML MDV ONE (07:30)
[2024-07-05] MEDS ORDERED: NS 500 ML IV ONE (07:30)
[2024-07-05] MEDS ORDERED: Midazolam HCl 1MG / ML 2ML Vial ONE (08:22)
[2024-07-05] MEDS ORDERED: FentaNYL Citrate 50 MCG/ML 2 ML Injection ONE (08:23)
[2024-07-05] MEDS ORDERED: Vancomycin HCl 1000 MG ADDvantage ONE (08:23)
[2024-07-05] MEDS ORDERED: NS 1,000 ML IV ONE (08:24)
[2024-07-05] MEDS ORDERED: NS 250 ML IV ONE (08:24)
[2024-07-05 10:52] VITALS: BP 154/94
--- NOTE | 2024-07-05 10:55 | NUR ---
ASSUMED CARE OF PT POST PROCEDURE. PT AWAKE AND CONVERSING APPROPRIATELY; REPORTS MIN DISCOMFORT AT L CHEST INCISION SITE. MONITOR SB 50'S, B/P 154/94, SPO2 100 % RA. L CHEST SITE NO SWELLING/HEMATOMA, TELFA AND TEGADERM DRSG INTACT; L CHEST ACCESS SITE NO SWELLING/HEMATOMA, CLOTH DOT INTACT. R CHEST ACCESS SITE ATTEMPT NO SWELLING/HEMATOMA, CLOTH DOT INTACT.
[2024-07-05 11:00] VITALS: BP 176/96
[2024-07-05 11:15] VITALS: BP 168/80
[2024-07-05 11:30] VITALS: BP 168/85
--- NOTE | 2024-07-05 11:35 | NUR ---
PT DRESSED SELF WITHOUT ISSUE, SITE UNCHANGED-IV REMOVED, CANNULA INTACT.
--- NOTE | 2024-07-05 11:41 | NUR ---
PT AND MOM RECEIVED DISCHARGE INSTRUCTIONS, MED LIST AND AFTER CARE INSTRUCTIONS; VERBALIZED GOOD UNDERSTANDING. PT LEFT FACILITY VIA W/C, CONDITION STABLE.
== END 2024-07-05 11:41 | disposition home or self-care (01) ==
LOC: MHTC 06:43
DX: Z45.2 Encounter for adjustment and management of vascular access device (principal); C90.00 Multiple myeloma not having achieved remission; N18.6 End stage renal disease; K21.9 Gastro-esophageal reflux disease without esophagitis; F17.220 Nicotine dependence, chewing tobacco, uncomplicated; Z88.0 Allergy status to penicillin; Z88.5 Allergy status to narcotic agent; Z79.899 Other long term (current) drug therapy; Z99.2 Dependence on renal dialysis
CPT/HCPCS: 36561; 76937; 99152; 99153; C1769; C1788; C1894; J1642; J1644; J2250; J3010; J3370; J7030; J7040; J7050; Q9967

== ENCOUNTER → 2024-07-16 | Outpatient (CLI) | payer MEDICARE, OTHER ==
[~2024-07-16] MED LIST changes: +MIDO5 PO
[2024-07-16 10:56] LABS: BASOPHILS PERCENT AUTO 3 % (0-2); EOSINOPHILS ABSOLUTE AUTO 0.16 K/mm3 (0.00-0.68); EOSINOPHILS PERCENT AUTO 4 % (0-6); Hematocrit 23.6 % (37.0-53.0); Hemoglobin 7.9 g/dL (13.5-17.5); IMMATURE GRAN ABSOLUTE AUTO 0.01 K/mm3 (0.00-0.10); IMMATURE GRAN PERCENT AUTO 0 % (0-1); LYMPHOCYTES ABSOLUTE AUTO 0.73 K/mm3 (0.84-5.20); LYMPHOCYTES PERCENT AUTO 20 % (21-46); MONOCYTES ABSOLUTE AUTO 0.51 K/mm3 (0.16-1.47); MONOCYTES PERCENT AUTO 14 % (4-13); Mean Corpuscular HGB 33.3 pg (26.0-34.0); Mean Corpuscular HGB Conc 33.5 g/dL (31.5-36.5); Mean Corpuscular Volume 100 fL (80-100); Mean Platelet Volume 9.9 fL (9.1-12.4); NEUTROPHILS ABSOLUTE AUTO 2.13 K/mm3 (1.96-9.15); NEUTROPHILS PERCENT AUTO 59 % (41-73); Platelet Count 107 K/mm3 (150-400); RDW Coefficient Variation 14.8 % (11.7-14.2); RDW Standard Deviation 53.3 fL (35.1-46.3); Red Blood Cell Count 2.37 M/mm3 (4.30-5.90); White Blood Cell Count 3.64 K/mm3 (4.00-11.30)
[2024-07-16 11:37] LABS: Albumin, Blood 3.5 g/dL (3.4-5.0); Albumin/Globulin Ratio 1.2 (0.8-1.8); Bilirubin, Total 0.5 mg/dL (0.1-1.0); Bun/Creatinine Ratio 4.1 (12.0-20.0); Creatinine, Blood 7.34 mg/dL (0.60-1.20); Potassium, Blood 3.6 mmol/L (3.5-5.5); Total Protein, Blood 6.5 g/dL (6.4-8.2)
== END | disposition home or self-care (01) ==
LOC: LAB DAV 09:10 → LAB SHORT 09:10
PROVIDERS: Internal Medicine Hematology & Oncology
DX: C90.00 Multiple myeloma not having achieved remission (principal)
CPT/HCPCS: 80053; 85025; 86334

== ENCOUNTER → 2024-08-13 | Outpatient (CLI) | payer MEDICARE, OTHER ==
[2024-08-13 11:24] LABS: BASOPHILS ABSOLUTE AUTO 0.02 K/mm3 (0.00-0.23); BASOPHILS PERCENT AUTO 0 % (0-2); EOSINOPHILS ABSOLUTE AUTO 0.06 K/mm3 (0.00-0.68); EOSINOPHILS PERCENT AUTO 1 % (0-6); Hematocrit 26.6 % (37.0-53.0); Hemoglobin 8.8 g/dL (13.5-17.5); IMMATURE GRAN PERCENT AUTO 1 % (0-1); LYMPHOCYTES PERCENT AUTO 11 % (21-46); MONOCYTES ABSOLUTE AUTO 0.49 K/mm3 (0.16-1.47); MONOCYTES PERCENT AUTO 7 % (4-13); Mean Corpuscular HGB 32.2 pg (26.0-34.0); Mean Corpuscular HGB Conc 33.1 g/dL (31.5-36.5); Mean Corpuscular Volume 97 fL (80-100); Mean Platelet Volume 9.7 fL (9.1-12.4); NEUTROPHILS ABSOLUTE AUTO 6.11 K/mm3 (1.96-9.15); NEUTROPHILS PERCENT AUTO 81 % (41-73); NRBC ABSOLUTE 0.02 K/mm3 (0.00-0.02); NRBC Auto 0.3 /100 WBC (0.0-0.2); Platelet Count 159 K/mm3 (150-400); RDW Coefficient Variation 15.6 % (11.7-14.2); RDW Standard Deviation 54.4 fL (35.1-46.3); Red Blood Cell Count 2.73 M/mm3 (4.30-5.90); White Blood Cell Count 7.58 K/mm3 (4.00-11.30)
[2024-08-13 12:03] LABS: Albumin, Blood 3.7 g/dL (3.4-5.0); Albumin/Globulin Ratio 1.2 (0.8-1.8); Bilirubin, Total 0.5 mg/dL (0.1-1.0); Bun/Creatinine Ratio 3.2 (12.0-20.0); Creatinine, Blood 6.49 mg/dL (0.60-1.20); Potassium, Blood 4.2 mmol/L (3.5-5.5); Total Protein, Blood 6.7 g/dL (6.4-8.2)
[2024-08-15 09:57] LABS: KAPPA QNT FREE LIGHT CHAINS 254.96 mg/L (3.30-19.40); KAPPA/LAMBDA FREE LIGHT CH RAT 8.32 (0.26-1.65); LAMBDA QNT FREE LIGHT CHAINS 30.64 mg/L (5.71-26.30)
== END ==
LOC: LAB SHORT 11:14
PROVIDERS: Internal Medicine Hematology & Oncology
DX: C90.00 Multiple myeloma not having achieved remission (principal)
CPT/HCPCS: 80053; 85025

== ENCOUNTER → 2024-08-23 | Outpatient (CLI) | payer MEDICARE, OTHER ==
[2024-08-23 11:00] LABS: BASOPHILS ABSOLUTE AUTO 0.06 K/mm3 (0.00-0.23); BASOPHILS PERCENT AUTO 1 % (0-2); EOSINOPHILS ABSOLUTE AUTO 0.36 K/mm3 (0.00-0.68); EOSINOPHILS PERCENT AUTO 8 % (0-6); Hemoglobin 9.2 g/dL (13.5-17.5); IMMATURE GRAN ABSOLUTE AUTO 0.01 K/mm3 (0.00-0.10); IMMATURE GRAN PERCENT AUTO 0 % (0-1); LYMPHOCYTES ABSOLUTE AUTO 0.74 K/mm3 (0.84-5.20); LYMPHOCYTES PERCENT AUTO 17 % (21-46); MONOCYTES ABSOLUTE AUTO 0.32 K/mm3 (0.16-1.47); MONOCYTES PERCENT AUTO 7 % (4-13); Mean Corpuscular HGB 33.5 pg (26.0-34.0); Mean Corpuscular HGB Conc 34.1 g/dL (31.5-36.5); Mean Corpuscular Volume 98 fL (80-100); Mean Platelet Volume 9.2 fL (9.1-12.4); NEUTROPHILS ABSOLUTE AUTO 2.87 K/mm3 (1.96-9.15); NEUTROPHILS PERCENT AUTO 66 % (41-73); Platelet Count 133 K/mm3 (150-400); RDW Coefficient Variation 15.7 % (11.7-14.2); RDW Standard Deviation 55.8 fL (35.1-46.3); Red Blood Cell Count 2.75 M/mm3 (4.30-5.90); White Blood Cell Count 4.36 K/mm3 (4.00-11.30)
[2024-08-23 11:39] LABS: Albumin, Blood 3.7 g/dL (3.4-5.0); Albumin/Globulin Ratio 1.2 (0.8-1.8); Bilirubin, Total 0.4 mg/dL (0.1-1.0); Bun/Creatinine Ratio 3.3 (12.0-20.0); Calcium, Blood 9.8 mg/dL (8.5-10.1); Creatinine, Blood 7.66 mg/dL (0.60-1.20); Potassium, Blood 4.5 mmol/L (3.5-5.5); Total Protein, Blood 6.7 g/dL (6.4-8.2)
[2024-08-26 00:58] LABS: KAPPA QNT FREE LIGHT CHAINS 346.9 mg/L (3.30-19.40); KAPPA/LAMBDA FREE LIGHT CH RAT 12.93 (0.26-1.65); LAMBDA QNT FREE LIGHT CHAINS 26.82 mg/L (5.71-26.30)
== END ==
LOC: LAB SHORT 10:00 → LAB 10:00
PROVIDERS: Internal Medicine Hematology & Oncology
DX: C90.00 Multiple myeloma not having achieved remission (principal)
CPT/HCPCS: 80053; 83521; 85025

== ENCOUNTER → 2024-10-13 | Outpatient (CLI) | payer MEDICARE, OTHER ==
[2024-10-13 11:09] LABS: BASOPHILS ABSOLUTE AUTO 0.04 K/mm3 (0.00-0.23); BASOPHILS PERCENT AUTO 1 % (0-2); EOSINOPHILS ABSOLUTE AUTO 0.41 K/mm3 (0.00-0.68); EOSINOPHILS PERCENT AUTO 11 % (0-6); Hematocrit 33.1 % (37.0-53.0); Hemoglobin 10.9 g/dL (13.5-17.5); IMMATURE GRAN ABSOLUTE AUTO 0.01 K/mm3 (0.00-0.10); IMMATURE GRAN PERCENT AUTO 0 % (0-1); LYMPHOCYTES ABSOLUTE AUTO 0.55 K/mm3 (0.84-5.20); LYMPHOCYTES PERCENT AUTO 15 % (21-46); MONOCYTES ABSOLUTE AUTO 0.34 K/mm3 (0.16-1.47); MONOCYTES PERCENT AUTO 9 % (4-13); Mean Corpuscular HGB 32.6 pg (26.0-34.0); Mean Corpuscular HGB Conc 32.9 g/dL (31.5-36.5); Mean Corpuscular Volume 99 fL (80-100); Mean Platelet Volume 9.3 fL (9.1-12.4); NEUTROPHILS ABSOLUTE AUTO 2.33 K/mm3 (1.96-9.15); NEUTROPHILS PERCENT AUTO 63 % (41-73); Platelet Count 133 K/mm3 (150-400); RDW Coefficient Variation 14.7 % (11.7-14.2); RDW Standard Deviation 52.8 fL (35.1-46.3); Red Blood Cell Count 3.34 M/mm3 (4.30-5.90); White Blood Cell Count 3.68 K/mm3 (4.00-11.30)
[2024-10-13 11:37] LABS: Albumin, Blood 3.8 g/dL (3.4-5.0); Albumin/Globulin Ratio 1.5 (0.8-1.8); Bilirubin, Total 0.6 mg/dL (0.1-1.0); Bun/Creatinine Ratio 2.9 (12.0-20.0); Calcium, Blood 9.6 mg/dL (8.5-10.1); Creatinine, Blood 6.48 mg/dL (0.60-1.20); Globulin, Blood 2.6 g/dL (2.2-4.0); Total Protein, Blood 6.4 g/dL (6.4-8.2)
[2024-10-15 02:40] LABS: KAPPA QNT FREE LIGHT CHAINS 240.62 mg/L (3.30-19.40); KAPPA/LAMBDA FREE LIGHT CH RAT 13.48 (0.26-1.65); LAMBDA QNT FREE LIGHT CHAINS 17.85 mg/L (5.71-26.30)
== END ==
LOC: LAB SHORT 10:58 → LAB 10:58
PROVIDERS: Internal Medicine Hematology & Oncology
DX: C90.00 Multiple myeloma not having achieved remission (principal)
CPT/HCPCS: 80053; 83521; 85025

== ENCOUNTER 2025-02-25 10:06 | Emergency (ER) | payer MEDICARE, OTHER ==
[~2025-02-25] VITALS: Ht 175.3 cm; Wt 70.3 kg
[2025-02-25 10:29] LABS: BASOPHILS ABSOLUTE AUTO 0.04 K/mm3 (0.00-0.23); BASOPHILS PERCENT AUTO 0 % (0-2); EOSINOPHILS ABSOLUTE AUTO 0.01 K/mm3 (0.00-0.68); EOSINOPHILS PERCENT AUTO 0 % (0-6); Hematocrit 36.8 % (37.0-53.0); Hemoglobin 12.2 g/dL (13.5-17.5); IMMATURE GRAN ABSOLUTE AUTO 0.20 K/mm3 (0.00-0.10); IMMATURE GRAN PERCENT AUTO 1 % (0-1); LYMPHOCYTES ABSOLUTE AUTO 0.87 K/mm3 (0.84-5.20); LYMPHOCYTES PERCENT AUTO 6 % (21-46); MONOCYTES ABSOLUTE AUTO 0.43 K/mm3 (0.16-1.47); MONOCYTES PERCENT AUTO 3 % (4-13); Mean Corpuscular HGB Conc 33.2 g/dL (31.5-36.5); Mean Corpuscular Volume 98 fL (80-100); NEUTROPHILS ABSOLUTE AUTO 13.67 K/mm3 (1.96-9.15); NEUTROPHILS PERCENT AUTO 90 % (41-73); NRBC ABSOLUTE 0.00 K/mm3 (0.00-0.02); NRBC Auto 0.0 /100 WBC (0.0-0.2); Platelet Count 151 K/mm3 (150-400); RDW Coefficient Variation 14.0 % (11.7-14.2); RDW Standard Deviation 50.8 fL (35.1-46.3)
[2025-02-25 10:48] LABS: Alanine Aminotransfer (ALT/SGP 8.0 U/L (12-78); Albumin, Blood 4.0 g/dL (3.4-5.0); Albumin/Globulin Ratio 1.2 (0.8-1.8); Anion Gap 14.0 mmol/L (3-11); Aspartate Aminotrans (AST/SGOT 7.0 U/L (12-37); Bilirubin, Total 0.4 mg/dL (0.1-1.0); Blood Urea Nitrogen 28.0 mg/dL (8-24); CO2, Blood 28.0 mmol/L (21-32); Calcium, Blood 9.5 mg/dL (8.5-10.1); Chloride, Blood 96.0 mmol/L (98-108); Creatinine, Blood 6.08 mg/dL (0.60-1.20); Globulin, Blood 3.4 g/dL (2.2-4.0); Glucose, Blood 199.0 mg/dL (70-99); Magnesium, Blood 2.3 mg/dL (1.6-2.4); Phosphorus, Blood 4.0 mg/dL (2.5-4.9); Potassium, Blood 4.1 mmol/L (3.5-5.5); Sodium, Blood 134.0 mmol/L (136-145); Total Protein, Blood 7.4 g/dL (6.4-8.2)
[2025-02-25 13:00] VITALS: BP 117/75
== END 2025-02-25 13:11 | disposition home or self-care (01) ==
LOC: ER 10:06
PROVIDERS: Student in an Organized Health Care Education/Training Program
DX: R07.9 Chest pain, unspecified (principal); N18.6 End stage renal disease; Z99.2 Dependence on renal dialysis; Z87.891 Personal history of nicotine dependence; Z79.899 Other long term (current) drug therapy; Z88.0 Allergy status to penicillin; Z88.5 Allergy status to narcotic agent
CPT/HCPCS: 71045; 80053; 83735; 84100; 84484; 85025; 93005; 93010; 99285-25

== ENCOUNTER → 2025-05-02 | Outpatient (CLI) | payer MEDICARE, OTHER ==
[~2025-05-02] MED LIST changes: +ACET500 PO; +Aspir 8181 MG PO; +FURO80 PO; +OLAN2.5 PO
[2025-05-02 13:50] LABS: BASOPHILS ABSOLUTE AUTO 0.05 K/mm3 (0.00-0.23); BASOPHILS PERCENT AUTO 1 % (0-2); EOSINOPHILS ABSOLUTE AUTO 0.62 K/mm3 (0.00-0.68); EOSINOPHILS PERCENT AUTO 11 % (0-6); Hematocrit 30.8 % (37.0-53.0); Hemoglobin 10.4 g/dL (13.5-17.5); IMMATURE GRAN ABSOLUTE AUTO 0.01 K/mm3 (0.00-0.10); IMMATURE GRAN PERCENT AUTO 0 % (0-1); LYMPHOCYTES ABSOLUTE AUTO 0.58 K/mm3 (0.84-5.20); LYMPHOCYTES PERCENT AUTO 11 % (21-46); MONOCYTES ABSOLUTE AUTO 0.42 K/mm3 (0.16-1.47); MONOCYTES PERCENT AUTO 8 % (4-13); Mean Corpuscular HGB Conc 33.8 g/dL (31.5-36.5); Mean Corpuscular Volume 100 fL (80-100); NEUTROPHILS ABSOLUTE AUTO 3.86 K/mm3 (1.96-9.15); NEUTROPHILS PERCENT AUTO 70 % (41-73); NRBC ABSOLUTE 0.00 K/mm3 (0.00-0.02); NRBC Auto 0.0 /100 WBC (0.0-0.2); Platelet Count 134 K/mm3 (150-400); RDW Coefficient Variation 15.2 % (11.7-14.2); RDW Standard Deviation 55.3 fL (35.1-46.3)
[2025-05-02 14:54] LABS: Alanine Aminotransfer (ALT/SGP 11.0 U/L (12-78); Albumin, Blood 3.5 g/dL (3.4-5.0); Albumin/Globulin Ratio 1.4 (0.8-1.8); Anion Gap 14.0 mmol/L (3-11); Aspartate Aminotrans (AST/SGOT 5.0 U/L (12-37); Bilirubin, Total 0.4 mg/dL (0.1-1.0); Blood Urea Nitrogen 34.0 mg/dL (8-24); CO2, Blood 25.0 mmol/L (21-32); Calcium, Blood 8.4 mg/dL (8.5-10.1); Chloride, Blood 99.0 mmol/L (98-108); Creatinine, Blood 6.84 mg/dL (0.60-1.20); Ferritin, Serum 590.0 ng/mL (26-388); Globulin, Blood 2.5 g/dL (2.2-4.0); Glucose, Blood 173.0 mg/dL (70-99); Potassium, Blood 4.1 mmol/L (3.5-5.5); Sodium, Blood 134.0 mmol/L (136-145); Total Iron Binding Capacity 233.0 ug/dL (250-450); Total Protein, Blood 6.0 g/dL (6.4-8.2)
[2025-05-05 20:47] LABS: ALPHA 1 GLOBULIN 0.30 g/dL (0.19-0.46); ALPHA 2 GLOBULIN 0.47 g/dL (0.48-1.05); BETA GLOBULIN 0.52 g/dL (0.48-1.10); GAMMA 0.43 g/dL (0.62-1.51); IMMUNOFIXATION IFE Done; KAPPA QNT FREE LIGHT CHAINS 137.02 mg/L (3.30-19.40); KAPPA/LAMBDA FLC RATIO 7.54 (0.26-1.65); LAMBDA QNT FREE LIGHT CHAINS 18.18 mg/L (5.71-26.30); TOTAL PROTEIN, SERUM 5.7 g/dL (6.3-8.2)
== END ==
LOC: LAB SHORT 12:19 → LAB 12:19
PROVIDERS: Internal Medicine Hematology & Oncology
DX: C90.00 Multiple myeloma not having achieved remission (principal)
CPT/HCPCS: 80053; 82728; 82784; 83521; 83540; 83550; 84155; 84165; 85025; 86334

== ENCOUNTER → 2025-06-24 | Outpatient (CLI) | payer MEDICARE ==
[2025-06-24 11:48] LABS: BASOPHILS ABSOLUTE AUTO 0.05 K/mm3 (0.00-0.23); BASOPHILS PERCENT AUTO 1 % (0-2); EOSINOPHILS ABSOLUTE AUTO 0.61 K/mm3 (0.00-0.68); EOSINOPHILS PERCENT AUTO 9 % (0-6); Hematocrit 31.9 % (37.0-53.0); Hemoglobin 10.7 g/dL (13.5-17.5); IMMATURE GRAN ABSOLUTE AUTO 0.02 K/mm3 (0.00-0.10); IMMATURE GRAN PERCENT AUTO 0 % (0-1); LYMPHOCYTES ABSOLUTE AUTO 0.63 K/mm3 (0.84-5.20); LYMPHOCYTES PERCENT AUTO 9 % (21-46); MONOCYTES ABSOLUTE AUTO 0.37 K/mm3 (0.16-1.47); MONOCYTES PERCENT AUTO 5 % (4-13); Mean Corpuscular HGB Conc 33.5 g/dL (31.5-36.5); Mean Corpuscular Volume 99 fL (80-100); NEUTROPHILS ABSOLUTE AUTO 5.19 K/mm3 (1.96-9.15); NEUTROPHILS PERCENT AUTO 76 % (41-73); NRBC ABSOLUTE 0.00 K/mm3 (0.00-0.02); NRBC Auto 0.0 /100 WBC (0.0-0.2); Platelet Count 184 K/mm3 (150-400); RDW Coefficient Variation 14.4 % (11.7-14.2); RDW Standard Deviation 51.8 fL (35.1-46.3)
[2025-06-24 12:09] LABS: Prothrombin Time Results 11.0 Sec (9.7-11.5)
[2025-06-24 12:10] LABS: Anion Gap 14.0 mmol/L (3-11); Blood Urea Nitrogen 37.0 mg/dL (8-24); CO2, Blood 22.0 mmol/L (21-32); Calcium, Blood 9.1 mg/dL (8.5-10.1); Chloride, Blood 105.0 mmol/L (98-108); Creatinine, Blood 7.12 mg/dL (0.60-1.20); Glucose, Blood 127.0 mg/dL (70-99); Potassium, Blood 4.4 mmol/L (3.5-5.5); Sodium, Blood 137.0 mmol/L (136-145)
== END ==
LOC: LAB 10:10 → LAB SHORT 10:10
PROVIDERS: Student in an Organized Health Care Education/Training Program
DX: N18.6 End stage renal disease (principal); T82.590A Other mechanical complication of surgically created arteriovenous fistula, initial encounter
CPT/HCPCS: 80048; 85025; 85610

== ENCOUNTER 2025-06-28 08:16 | Day surgery (SDC) | payer MEDICARE ==
[~2025-06-28] VITALS: Ht 175.3 cm; Wt 74.8 kg
[2025-06-28 08:55] VITALS: BP 137/81
--- NOTE | 2025-06-28 11:48 | NUR ---
pt abruptly stood up, ripped cardiac leads, spo2 monitor, and bp cuff off saying "thats it i'm done" and stated he's done waiting and was going home. pt infomred the lab was being prepared for his procedure but pt stated he was not going to wait any longer. iv removed. pt left department.
--- NOTE | 2025-06-28 11:53 | NUR ---
2cc removed from tr band. site soft and non-tender per pt. no bleeidng/hematoma noted.
[2025-06-28] MEDS ORDERED: NS 1,000 ML IV ONE (12:02)
[2025-06-28] MEDS ORDERED: Nitroglycerin 2 MG/20 ML BTL ONE (12:02)
[2025-06-28] MEDS ORDERED: Heparin Sodium 1000 Units/ML 10ML MDV ONE (12:02)
--- NOTE | 2025-06-28 12:05 | NUR ---
tr band deflated. sites soft and non-tender per pt. no bleeding/hematoma noted.
== END 2025-06-28 12:05 | disposition left against medical advice (07) ==
LOC: MHTC 08:16
DX: T82.590A Other mechanical complication of surgically created arteriovenous fistula, initial encounter (principal); N18.6 End stage renal disease; Z53.20 Procedure and treatment not carried out because of patient's decision for unspecified reasons
CPT/HCPCS: 93005; 93010; J1644; J7030